=== PATIENT | male | born 1990 | race Caucasian/White ===

== ENCOUNTER 2023-03-23 03:18 | Emergency (ER) | payer SELFPAY ==
[2023-03-23 03:29] VITALS: RESP 18; BMI 38.4
[2023-03-23] MEDS ORDERED: DEXAMETHASONE SOD PHOSPHATE 10 MG/1 ML VIAL IVPUSH ONE (04:13)
[2023-03-23] MEDS ORDERED: KETOROLAC TROMETHAMINE 30 MG/1 ML VIAL IVPUSH ONE (04:13)
[2023-03-23] MEDS ORDERED: SODIUM CHLORIDE 0.9% 500 ML INFUS.BAG IV ONE (04:13)
[2023-03-23] MEDS ORDERED: DEXAMETHASONE SOD PHOSPHATE 10 MG/1 ML VIAL ONE (04:27)
[2023-03-23] MEDS ORDERED: KETOROLAC TROMETHAMINE 30 MG/1 ML VIAL ONE (04:27)
[2023-03-23 05:38] LABS: BASO % 0.4 % (0-2.0); HEMATOCRIT 41.6 % (35.4-49); HEMOGLOBIN 14.2 GM/dL (11.7-16.9); LYMPH % 9.5 % (8-40); MCH 28.6 pg (25.7-33.7); MCHC 34.1 g/dl (32.0-35.9); MEAN PLT VOLUME 11.7 fl (7.5-11.1); MONO % 8.2 % (3.8-10.2); NEUT % 77.9 % (42.8-82.8); PLATELET COUNT 214 10^3/uL (134-434); RBC 4.96 M/mm3 (4.00-5.60); WHITE BLOOD COUNT 14.9 K/mm3 (4.0-10.0)
[2023-03-23 05:58] LABS: BLOOD UREA NITROGEN 9.3 mg/dL (7-18)
[2023-03-23 06:01] LABS: CREATININE 0.8 mg/dL (0.55-1.3)
[2023-03-23] MEDS ORDERED: CEFTRIAXONE 1 GM/50 ML BAG ONE (06:41)
[2023-03-23] MEDS ORDERED: DEXTROSE 5%-0.45% SALINE 1,000 ML IV SCH (08:30)
[2023-03-23 09:52] VITALS: BP 110/75; PULSE 85
[2023-03-23 09:53] VITALS: TEMP 98.2
== END 2023-03-23 09:54 | disposition short-term general hospital (02) ==
LOC: JER 03:18
PROC: 3E033NZ Introduction of Analgesics, Hypnotics, Sedatives into Peripheral Vein, Percutaneous Approach (ICD-10-PCS; principal; 2023-03-23)
PROC: 3E033GC Introduction of Other Therapeutic Substance into Peripheral Vein, Percutaneous Approach (ICD-10-PCS; 2023-03-23)
DX: R68.84 Jaw pain (principal); R47.01 Aphasia; H92.02 Otalgia, left ear; J02.0 Streptococcal pharyngitis; J36 Peritonsillar abscess; Z20.822 Contact with and (suspected) exposure to COVID-19
CPT/HCPCS: 36415; 70491-TC; 80048; 85025; 87651; 99285-25; C9803-CS; J1100; Q9967; U0003; U0005